=== PATIENT | male | born 1950 | race Caucasian/White ===

== ENCOUNTER 2019-04-20 15:59 | Inpatient (IN) ==
[2019-04-20] MEDS ORDERED: PROMETHAZINE 25 MG/ML VIAL IV PRN (16:20)
[2019-04-20] MEDS ORDERED: HYDROmorphone 2 MG/ML VIAL IV PRN (16:20)
[2019-04-20] MEDS ORDERED: SENNOSIDES 1 TABLET PO PRN (16:20)
[2019-04-20] MEDS ORDERED: ONDANSETRON 4 MG/2 ML VIAL IV PRN (16:20)
[2019-04-20] MEDS ORDERED: NALOXONE HCL 0.4 MG/ML VIAL IV PRN (16:20)
[2019-04-20] MEDS ORDERED: BISACODYL 10 MG SUPP.RECT PR PRN (16:20)
[2019-04-20] MEDS ORDERED: ACETAMINOPHEN 325 MG TABLET PO PRN (16:20)
[2019-04-20] MEDS ORDERED: SODIUM BICARBONATE VIAL 150 MEQ in DEXTROSE 5% IN WATER 850 ML IV SCH ×2 (16:30→16:43)
[2019-04-20] MEDS ORDERED: oxyCODONE HCL 5 MG TABLET PO PRN (16:44)
[2019-04-20] MEDS ORDERED: LACTATED RINGERS 1,000 ML IV ONE (16:51)
--- NOTE | 2019-04-20 16:51 | Internal Med History&Physical ---
Medical - H&P: HPI Patient information: Note initiated : 04/20/19 at 4:45 pm Service Date, if different from initiated Date: [] Patient: Rafael Mo a 69 y/o M admitted on 04/20/19 for Acute Renal Failure, Hypertension . Chief Complaint: [] History of present illness: Mr. Mo is a 69 year old M with history of BPH status post prostatectomy, peripheral vascular disease on dual antiplatelet drugs as well as Eliquis presents to the emergency room at [facility] for nausea and vomiting that has been bothering him for the last 2 weeks. Patient notes that he has been having severe nausea and vomiting every time he tries to eat something. He denies any nausea vomiting or retching when he does not eat. Usually food that he has eaten will come out. He denies any blood in the stools no black stools or melena. He notes his nausea vomiting is worse with food and better with n.p.o. status. He has not eaten or has not had much fluid intake for the last 2 weeks. Initially felt his symptoms would get better however since that did not improve he decided to go to the emergency room. He was admitted with similar symptoms last year but he had renal failure secondary to decreased oral intake associated with nausea and vomiting. The patient also complains about abdominal pain right lower quadrant that started 2 weeks ago he is not sure if the pain started first with the nausea vomiting started first. He denies any diarrhea or any blood in the stools he denies any obvious aggravating or relieving factors with relation to his lower abdominal pain. Sharp pain intermittent nonradiating. The patient also notes intermittent chest pains, epigastric burning, lasts for a few seconds not associated with shortness of breath or palpitations. The patient admits to having some dizziness whenever he changes position. Does not recollect when was the last time he passed urine. On presenting to the emergency room at [facility] according to the ER physician the patient was hypotensive but responded to IV fluids., Labs showed WBC count of 6.3 hemoglobin 11.9 platelets 146, sodium 133, potassium 6.4 bicarbonate 15 anion gap 26 chloride 92 BUN 181 creatinine 12.7 glucose 88 Venous blood gas shows pH of 7.19 PCO2 42. Patient had a PSA done I believe this year that was 0.008 Patient denies any recent use of NSAIDs, he is on lisinopril and Aldactone for management of his hypertension. Given that [facility] does not have nephrology coverage the patient was transferred here for further management. Dr. Sal, the consulting garbage stoker had consulted the patient on the phone with the ED provider and had accepted the patient for transfer. All systems: reviewed and no additional remarkable complaints except as stated (as per HPI rest neg) Medical - H&P: PMH Medical history: Peripheral vascular disease Gout 's history of CA prostate Chronic kidney disease Chronic insomnia Hypertension Osteoarthritis Lumbar fracture Chronic anticoagulate Surgical history: Prostatectomy Family history: reviewed and not pertinent Social history: Lives by himself Ex-smoker Social, regular drinker Denies any drug use Medical - H&P: Meds Allergies Allergy/AdvReac Type Severity Reaction Status Date / Time furosemide [From Lasix] Allergy Verified 04/20/19 16:28 Penicillins Allergy Verified 04/20/19 16:27 Medical - H&P: Exam - Constitutional Exam: GENERAL: The patient is a well-developed, well-nourished in no apparent distress. Is alert and oriented x3. VITAL SIGNS: Reviewed and as noted elsewhere. HEENT: Head is normocephalic and atraumatic. Extraocular muscles are intact. Pupils are equal, round, and reactive to light. Nares appeared normal. Mouth appears any without lesions. Mucous membranes are dry NECK: Normal to inspection, Supple, No lymphadenopathy or thyromegaly. LUNGS: Air entry equal on both sides, no wheezing, crackles or rhonchi noted. No accessory muscles of respiration HEART: Regular rate and rhythm normal, S1 and S2 heard, no Gallop, S3 or Rub Noted, No Gross murmur heard. ABDOMEN: Soft, nontender, and nondistended. Positive bowel sounds. No hepatosplenomegaly was noted. EXTREMITIES: No cyanosis, clubbing, rash, lesions or edema. NEUROLOGIC: Cranial nerves II through XII are grossly intact. Motor and Sensory System Grossly Intact PSYCHIATRIC: Normal affect, anxious Mood. Appropriate Behavior. SKIN: No ulceration or wounds noted, No jaundice, No rash noted. Medical - H&P: Reslt - Impressions EGD 03/2018(Dr Mujica IMPRESSION: 1. Grade II-III gastroesophageal junction erosive esophagitis with associated peptic stricture and hiatal hernia, not dilated given last dose of Eliquis yesterday morning. 2. Erosive gastritis and duodenitis with JENNIFER biopsies obtained (likely secondary to or exacerbated by ibuprofen usage). 3. Colonoscopy remarkable for sigmoid diverticulosis with small to moderate internal hemorrhoids. PLAN: 1. Place the patient on pantoprazole 40 mg b.i.d. during this hospitalization and advise that he take omeprazole 20 mg b.i.d. at discharge for at least the next 8 weeks, and then maintain on 20 mg prior to breakfast for long-term given need for anticoagulation and clopidogrel. 2. Strictly avoid NSAIDs and aspirin. 3. Follow up JENNIFER biopsy results and if positive, treat with combination antibiotics. 4. Offer esophageal dilation off Eliquis at least 48 hrs. Barium Swallow 2017 Indication: Dysphagia, regurgitation. Findings: The patient swallowed thick and thin barium without difficulty after ingesting effervescent crystals. I see no evidence of extrinsic or intrinsic esophageal mass. No esophageal ulceration. There is presbyesophagus. A tiny sliding hiatal hernia is noted. There is a delayed transit of esophageal contents presumably related to presbyesophagus. Contrast versus the GE junction into the stomach and duodenum without delay. Barium tablet traversed the esophagus and GE junction without significant delay as well. Impression: Presbyesophagus. Medical - H&P: A/P - Narrative A/P Narrative: A/P Acute Kidney Injury -Likely from pre renal cause, decreased oral intake -IV fluids, get CT abdomen and pelvis, look for hydronephrosis, and other possible etiology for abdominal pain. -Nephrology consulted, await consult. -check ua, urine prot creat, urine sodium. Hyperkalemia -on IV bicarb drip, should help, will repeat labs -hopefully will respond to medical management. Acidosis, ANion gap and non anion gap -From renal failure -monitor, should respond to fluids Nausea/Vomiting/Abdominal pain -Etiology? h/o Gastritis in past, also noted presbyesophagus -no sick contact, or h/o suggestive of food poisoning. -CT should help -IV PPI for now, seems not on PPI at this time. h/o Gout - no acute joint pains reported PVD -s/p stents by Dr Kearns, on anticoagulation and dual antiplatlet agents HTN -on Aldactone / Lisinopril, hold for now. DVT hep sq Full code Renal Diet.
--- NOTE | 2019-04-20 17:29 | Cat Scan Report ---
CLINICAL INFORMATION: Renal failure. Abdominal pain. COMPARISON: Previous lumbar MRI scan dated 05/31/2018 TECHNIQUE: Axial images were obtained through the abdomen and pelvis. Sagittally and coronally reformatted images. FINDINGS: Negative lung bases. No parenchymal infiltrate or mass. No focal abnormality. There is no pleural fluid. There is no pericardial fluid. Liver is negative. No focal abnormality identified on this noncontrast enhanced examination. Liver contour is smooth. Gallbladder is present. No calcified gallstones. No dilated bile ducts. Spleen is not enlarged. Pancreas is negative. No pancreatic mass. No peripancreatic abnormality. Negative adrenal glands. Kidneys are somewhat lobular. Appearance is consistent with extrarenal pelvis on the right. No true hydronephrosis. Is no detectable renal mass. No renal calculi. No hydroureter or ureteral stone. There is no bladder stone. Mild sigmoid diverticulosis. No diverticulitis. No pericolonic inflammatory change. Appendix is not visualized. No evidence for appendicitis. Small bowel is negative. No mesenteric adenopathy. There is calcification of the abdominal aorta. Common iliac arteries and external iliac arteries are calcified. There is mild coronary artery calcification. Compression deformity of the L1 vertebral body. This is slightly worse than on previous examination dated 05/31/2018. Degenerative disc narrowing at L4-5. No evidence for disc infection. Sacrum and pelvis are negative. There are cancellous screws in the left hip. No intra-abdominal abscess. No pneumoperitoneum. No biliary or portal venous gas. No pneumatosis. IMPRESSION: 1. Mild sigmoid diverticulosis. No diverticulitis. 2. Atherosclerotic disease. No abdominal aortic aneurysm 3. No acute abnormality The exam was performed using radiation dose optimization techniques including, but not limited to, automated exposure control, adjustment of the mA and/or kV according to patient size and use of iterative reconstruction technique. Interpreted and Authenticated by: Rich Beach 04/20/19
[2019-04-20 17:35] LABS: ALT/SGPT < 5 U/l (0-40); AST/SGOT < 5 U/l (0-37); Albumin 3.7 gm/dL (3.2-5.2); Albumin/Globulin Ratio 1.2 (1.0-2.3); Alkaline Phosphatase 58 U/L (39-117); Bilirubin,Direct < 0.2 mg/dL (0.0-0.3); Bilirubin,Total 0.5 mg/dL (0.0-1.0); Blood Urea Nitrogen 172 mg/dl (8-23); Calcium 8.7 mg/dl (8.6-10.4); Carbon Dioxide 16 mmol/L (22-30); Chloride 94 mmol/L (96-108); Globulin 3.1 gm/dL (2.2-3.7); Glomerular Filtration Rate 4; Glucose 98 mg/dL (70-105); Lactate Dehydrogenase 92 U/L (94-250); Phosphorous 11.1 mg/dL (2.7-4.5); Sodium 132 mmol/L (133-145); Triglycerides 128 mg/dl (<150); Uric Acid 10.2 mg/dL (2.5-8.0)
--- NOTE | 2019-04-20 18:15 | Nephrology Consult Note ---
History of Present Illness - Reason for Consult Patient information: Note initiated : 04/20/19 at 5:56 pm Service Date, if different from initiated Date: [] Patient: Rafael Mo 69 y/o M admitted on 04/20/19 for Acute Renal Failure, Hypertension . Chief Complaint: [] Consult date: 04/20/19 acute renal failure, hyperkalemia, metabolic acidosis Requesting physician: Piyush Norris - Chief Complaint Nausea and voniting for 2 weeks - History of Present Illness I was called by ED physician at [facility] concerning a chronically ill 69 yr old male with SCr 11, K 6.4 and and anion gap acidosis. This is in association with nausea and vomiting of unknown cause and with a 20 lb weight loss. The ER physician reported this ocured once before but not to such a degree (ARF with peak serum creratinine in the 2's). A review of his medication list reveals he is on a number of medications that in the setting of renal hypoperfusion would cause ARF including Lisinopril, Spironolactone/HCT and KCl supplement. He had been prescribed Bactrim in the past but non lately. His list includes a PPi inhibitor. Also apixiban, ASA and clopidigrel. He has been wheelchair bound due to weakness for the past 3 years without a Dx that the patient is aware of. He denies seeing a railway switchman in the past. Cannot keep food or fluids down but does not report blood or coffee ground emesis. Upoin arrival to OSH, his BP was ~70/50 with pulse 83/min and O2 sat 100%. No fortune or urine output noted till after 1 liter of IVF when a small voided sample was produced. I rercommended stating D5W with 150 mEq NaHCO3 at 200 cc per hour and transferr to [facility] emergent dialysis was needed. Upon arrival, the patient is sitting in the ICU with HR of 92/min and BP 114/70. Alert and responsive with no obvious uremic symptoms. IVF is the bicarb drip at 200 cc/hr. Voiding small amounts of clear urine PVR by bladder scan is 150-[address] scan: IMPRESSION: 1. Mild sigmoid diverticulosis. No diverticulitis. 2. Atherosclerotic disease. No abdominal aortic aneurysm 3. No acute abnormality Laboratory Tests 04/20/19 16:45 Sodium 132 L Potassium 6.0 H* Chloride 94 L Carbon Dioxide 16 L Anion Gap 22.0 H BUN 172 H* Creatinine 11.1 H* Glucose 98 Uric Acid 10.2 H Phosphorus 11.1 H* Magnesium 2.0 Albumin 3.7 Active Medications Acetaminophen (Tylenol) 650 mg PO Q4-6HP PRN PRN Reason: PAIN/FEVER > 101 Bisacodyl (Dulcolax) 10 mg AL Q2-3DAYS PRN PRN Reason: Constipation Docusate Sodium (Colace) 100 mg PO BID NANCY Heparin Sodium (Porcine) (Heparin) 5,000 unit SQ Q12 [facility] Hydromorphone HCl (Dilaudid) 0.5 mg IV Q2HP PRN PRN Reason: PAIN LEVEL > 6 Sodium Bicarbonate 150 meq/ (Dextrose) 1,000 mls @ 200 mls/hr IV Q20H [facility] Last Admin: 04/20/19 17:35 Dose: 200 mls/hr Documented by: Lactated Ringer's (Lactated Ringers) 1,000 mls @ 0 mls/hr IV BOLUS ONE Stop: 04/20/19 16:52 Last Admin: 04/20/19 16:55 Dose: 999 mls/hr Documented by: Naloxone HCl (Narcan) 0.1 mg IV Q2MIN PRN PRN Reason: Opiate Reversal Ondansetron HCl (Zofran) 4 mg IV Q4-6HP PRN PRN Reason: Nausea And Vomiting Oxycodone HCl (Roxicodone) 5 mg PO Q4HP PRN PRN Reason: PAIN LEVEL 3-6 Pantoprazole Sodium (Protonix) 40 mg IV BIDAC [facility] Promethazine HCl (Phenergan) 12.5 mg IV Q4-6HP PRN PRN Reason: Nausea And Vomiting Senna (Senokot) 2 tab PO HSP PRN PRN Reason: Constipation Sodium Chloride (Saline Flush) 10 ml IV Q8 [facility] Review of Systems All systems PM: reviewed and no additional remarkable complaints except as stated Constitutional: as per HPI, anorexia, weakness, weight loss Nose, mouth and throat: hoarseness Respiratory: cough Gastrointestinal: diarrhea, loose stools, vomiting Genitourinary: as per HPI Integumentary: no pruritus Neurological: confusion, dizziness, focal weakness, weakness Hematologic/Lymphatic: easy bruising Past History Past medical history: Medical history: Peripheral vascular disease Gout 's history of CA prostate Chronic kidney disease Chronic insomnia Hypertension Osteoarthritis Lumbar fracture Chronic anticoagulate Surgical history: Prostatectomy Family history: reviewed and not pertinent Social history: Lives by himself Ex-smoker Social, regular drinker Denies any drug use Medications and Allergies Allergies Allergy/AdvReac Type Severity Reaction Status Date / Time furosemide [From Lasix] Allergy Verified 04/20/19 16:28 Penicillins Allergy Verified 04/20/19 16:27 Exam - Vital Signs Vital signs: 109/70 and pulse 109/min - General Appearance General appearance: appears started age, chronically ill, fatigue EENT: ATNC, PERRL, mucous membranes dry, hearing intact, vision intact Neck: no JVD, no thyromegaly, no carotid bruit, supple Respiratory: no kyphosis, no scoliosis Cardiology: no murmurs, no rub, no gallops, no edema, regular rhythm, normal S2 Gastrointestinal: no tenderness, no masses, abdominal bruit Integumentary: no rash Neurologic: no focal deficit, alert and oriented x3 Musculoskeletal: no deformities, no cyanosis, no clubbing Psychiatric: mood/affect appropriate, cooperative Results - Lab Results 04/20/19 16:45 Most recent lab results Calcium 8.7 mg/dl (8.6-10.4) 04/20/19 16:45 Phosphorus 11.1 mg/dL (2.7-4.5) H* 04/20/19 16:45 Magnesium 2.0 mg/dL (1.6-2.5) 04/20/19 16:45 - Image Kidney/bladder ultrasound: report reviewed (PVR 140-170 cc) Assessment and Plan (1) Acute renal failure superimposed on chronic kidney disease Certainly has lots of reasons for ARF, most of which involve decreased renal perfusion due to dehydration, low BP, renal affects of ACEi on renal perfusion in the setting of low renal perfusion states. - What worries me is the degree of hyperphosphatemia that suggests he may well have substantial CKD - need old records from [facility] or other the orthopedic specialty hospital tions to tell - I was also disappointed that he does not have a large PVR and obstructive uropathy which is a rapidly reversible cause of ARF. - The next 24-72 hours will tell to what degree has has reversible renal disease - Monitor GFR with hydration - U/S to gauge renal size and echogenicity - Ca/PO4 and intact PTH - Volume resusitation with Bicarb to correct acidosis - No need for acute dialysis at this juncture Status: Acute Priority: High Qualifiers: Acute renal failure type: with other specified pathological lesion Chronic kidney disease stage: unspecified stage Qualified Code(s): N17.8 - Other acute kidney failure; N18.9 - Chronic kidney disease, unspecified (2) Increased anion gap metabolic acidosis Presumed secondary to renal failure. No history of ethylene glycol or other common agents seen with an anion gap acidosis. - Treat with NaHCO3 drip due to hyperkalemia - Serial labs and EKGs - Argues for chronicity Status: Acute Priority: High (3) Secondary renal hyperparathyroidism Ca x PO4 product > 60 so need control of Phosphate before treating anything else. -Anticipate marked decrease in PO4 with IV glucose - Check daily and address prn - PTH level Status: Acute Priority: High (4) Nausea and vomiting in adult patient - The unifying diagnosis and worse case senario is ESRD with uremic gastropathy. ER doc reported gastritis in the past but no nausea or vomiting. - If this is uremic, it should resolve with time and correction of uremia. If this is the case, it speaks to ESRD and not ARF/CKD. The more I think about this case, the more I fear this will be ESRD as his numbers look so bad but he has little uremic symptoms suggesting a slow onset (ie: lack of EKG changes suggests he "tolerates" acidosis and hypercalemia without cardiac sx. Status: Acute Priority: High
[2019-04-20 18:41] LABS: Appearance,Urine CLEAR; Bacteria,Urine 0 /hpf (0); Bilirubin,Urine NEG (NEG); Color,Urine YELLOW; Culture Indicated,Urine NO; Glucose,Urine (UA) NEGATIVE (NEG); Ketones,Urine NEG (NEG); Leukocyte Esterase,Urine NEG /uL (NEG); Mucus,Urine FEW /hpf (0); Nitrate,Urine NEG (NEG); Protein,Urine 30 mg/dL (NEG); Specific Gravity,Urine 1.014 (1.000-1.035); Urine Blood 0.03 mg/dL (<0.03); Urine Hyaline Cast 5 /lpf (0-2); Urine RBC 1 /hpf (0-1); Urine Squamous Epithelial Cell 1 /hpf (0-4); Urine WBC 3 /hpf (0-4); Urobilinogen,Urine NEG (NEG)
[2019-04-20] MEDS ORDERED: INSULIN REGULAR, HUMAN 1 UNIT/0.01 ML UNIT IV ONE (18:54)
[2019-04-20] MEDS ORDERED: DEXTROSE 50% 50 ML VIAL IV ONE (18:54)
[2019-04-20] MEDS ORDERED: SODIUM POLYSTYRENE SULFONATE 15 GM/60 ML SUSPENSION PO ONE (18:55)
[2019-04-20 19:03] LABS: Creatinine, Spot Urine 226.8 mg/dl; Pro:Crea Ratio 0.14 mg:mg
[2019-04-20] MEDS: PANTOPRAZOLE 40 MG VIAL IV SCH ×2 (19:19→19:22)
[2019-04-20] MEDS: HEPARIN 5,000 UNIT/ML VIAL SQ SCH (20:17)
[2019-04-20] MEDS: DOCUSATE SODIUM 100 MG CAPSULE PO SCH (20:17)
[2019-04-20] MEDS: ESOMEPRAZOLE 40 MG VIAL IV SCH (20:37)
[2019-04-20] MEDS ORDERED: SODIUM BICARBONATE 50 MEQ/50 ML VIAL ONE (21:03)
[2019-04-20] MEDS: SODIUM BICARBONATE VIAL 150 MEQ in DEXTROSE 5% IN WATER 850 ML IV SCH (21:43)
[2019-04-20] MEDS: 0.9 % SODIUM CHLORIDE 10 ML SYRINGE IV SCH (22:13)
[2019-04-20 23:42] LABS: ABG Methemoglobin 0 % (0.4-1.5); Total Hemoglobin 9.7 gm/dL (13.5-16.5); VBG Base Excess -3.5 (-2.0-2.0); VBG HCO3 22.8 mmol/L (24.0-28.0); VBG Oxygen Saturation 86.6 % (40.0-70.0); VBG PO2 72 mmHg (25-40); VBG Total CO2 24.3 mmol/L (25.0-29.0)
[2019-04-21 00:14] LABS: Albumin 3.4 gm/dL (3.2-5.2); Calcium 8.5 mg/dl (8.6-10.4); Magnesium 1.9 mg/dL (1.6-2.5); Phosphorous 8.1 mg/dL (2.7-4.5)
[2019-04-21] MEDS ORDERED: 0.9 % SODIUM CHLORIDE 250 ML IV ONE ×4 (00:32→10:27)
[2019-04-21] MEDS: SODIUM BICARBONATE 50 MEQ/50 ML VIAL ONE ×2 (03:14→03:16)
[2019-04-21] MEDS: SODIUM BICARBONATE VIAL 150 MEQ in DEXTROSE 5% IN WATER 850 ML IV SCH ×2 (03:17→07:20)
[2019-04-21] MEDS: 0.9 % SODIUM CHLORIDE 10 ML SYRINGE IV SCH ×3 (05:19→20:31)
[2019-04-21 06:21] LABS: Basophils # (Auto) 0 K/mcL (0.0-0.3); Basophils % (Auto) 0.5 % (0.0-2.0); Eosinophils # (Auto) 0 K/mcL (0.0-0.7); Eosinophils % (Auto) 0.8 % (0.0-7.0); Granulocytes % (Auto) 71.3 % (38.0-78.0); Hematocrit 27.2 % (41.0-55.0); Hemoglobin 9.2 g/dL (13.5-16.5); Lymphocytes # (Auto) 0.6 K/mcL (1.5-4.8); Lymphocytes % (Auto) 15.9 % (15.5-49.0); Mean Cell Volume 93.1 fL (80.0-100.0); Mean Corpuscular HGB Conc 33.8 g/dL (31.0-36.0); Mean Platelet Volume 9.7 fL (7.4-10.4); Monocytes # (Auto) 0.4 K/mcL (0.1-0.9); Monocytes % (Auto) 11.5 % (1.0-12.0); Platelet Count 102 K/mcL (140-440); RBC 2.92 M/mcL (4.50-5.90); Red Cell Distribution Width 14.3 % (11.5-14.5); WBC 3.5 K/mcL (4.5-11.0)
[2019-04-21 06:54] LABS: ALT/SGPT 6 U/l (0-40); AST/SGOT < 5 U/l (0-37); Albumin 3.1 gm/dL (3.2-5.2); Albumin/Globulin Ratio 1.2 (1.0-2.3); Alkaline Phosphatase 46 U/L (39-117); Bilirubin,Direct < 0.2 mg/dL (0.0-0.3); Bilirubin,Total 0.5 mg/dL (0.0-1.0); Blood Urea Nitrogen 153 mg/dl (8-23); Calcium 7.8 mg/dl (8.6-10.4); Carbon Dioxide 26 mmol/L (22-30); Chloride 99 mmol/L (96-108); Globulin 2.6 gm/dL (2.2-3.7); Glomerular Filtration Rate 6; Glucose 118 mg/dL (70-105); Lactate Dehydrogenase 104 U/L (94-250); Magnesium 1.7 mg/dL (1.6-2.5); Phosphorous 6.6 mg/dL (2.7-4.5); Potassium 4.3 mmol/L (3.3-5.1); Sodium 141 mmol/L (133-145); Triglycerides 82 mg/dl (<150); Uric Acid 9.7 mg/dL (2.5-8.0)
[2019-04-21] MEDS: ESOMEPRAZOLE 40 MG VIAL IV SCH ×2 (07:19→16:58)
[2019-04-21] MEDS ORDERED: MAGNESIUM SULFATE 2 GM/50 ML BAG IV ONE (07:50)
--- NOTE | 2019-04-21 08:06 | Ultrasound Report ---
CLINICAL INFORMATION: Renal failure TECHNIQUE: Grayscale and color flow Doppler spectral imaging COMPARISON: Noncontrast enhanced CT scan 04/20/2019 FINDINGS: Right kidney measures 12.0 x 4.6 x 3.7 cm. Left kidney measures 11.7 x 4.7 x 4.0 cm. Both kidneys are mildly echogenic and lobular in configuration. No solid or cystic mass. There is no hydronephrosis. No detectable calculi. Patient voided prior to this examination. Despite voiding the bladder volume measures 274 mL. No bladder calculus or detectable mass. Bilateral ureteral jets are identified. IMPRESSION: 1. Mildly echogenic kidneys consistent with medical renal disease 2. No hydronephrosis 3. Postvoid residual as above Interpreted and Authenticated by: Rich Beach 04/21/19
--- NOTE | 2019-04-21 08:30 | Internal Med Progress Note ---
Medical - PN: Subj Patient information: Note initiated : 04/21/19 at 8:27 am Service Date, if different from initiated Date: [] Patient: Rafael Mo a 69 y/o M admitted on 04/20/19 for Acute Renal Failure, Hypertension . Chief Complaint: [] Interval history: Mr. Mo is a 69 year old M with history of BPH status post prostatectomy, peripheral vascular disease on dual antiplatelet drugs as well as Eliquis presents to the emergency room at [facility] for nausea and vomiting that has been bothering him for the last 2 weeks. Patient notes that he has been having severe nausea and vomiting every time he tries to eat something. He denies any nausea vomiting or retching when he does not eat. Usually food that he has eaten will come out. He denies any blood in the stools no black stools or melena. He notes his nausea vomiting is worse with food and better with n.p.o. status. He has not eaten or has not had much fluid intake for the last 2 weeks. Initially felt his symptoms would get better however since that did not improve he decided to go to the emergency room. He was admitted with similar symptoms last year but he had renal failure secondary to decreased oral intake associated with nausea and vomiting. The patient also complains about abdominal pain right lower quadrant that st arted 2 weeks ago he is not sure if the pain started first with the nausea vomiting started first. He denies any diarrhea or any blood in the stools he denies any obvious aggravating or relieving factors with relation to his lower abdominal pain. Sharp pain intermittent nonradiating. The patient also notes intermittent chest pains, epigastric burning, lasts for a few seconds not associated with shortness of breath or palpitations. The patient admits to having some dizziness whenever he changes position. Does not recollect when was the last time he passed urine. On presenting to the emergency room at [facility] according to the ER physician the patient was hypotensive but responded to IV fluids., Labs showed WBC count of 6.3 hemoglobin 11.9 platelets 146, sodium 133, potassium 6.4 bicarbonate 15 anion gap 26 chloride 92 BUN 181 creatinine 12.7 glucose 88 Venous blood gas shows pH of 7.19 PCO2 42. Patient had a PSA done I believe this year that was 0.008 Patient denies any recent use of NSAIDs, he is on lisinopril and Aldactone for management of his hypertension. Given that [facility] does not have nephrology coverage the patient was transferred here for further management. Dr. Sal, the consulting wound/ostomy nurse had consulted the patient on the phone with the ED provider and had accepted the patient for transfer. 04/21 Patient seen examined, no acute issues, bp still soft, but MAP > 65 labs show improving creat, K , appreciate nephrology input. Pt making urine, sitting comfortably this AM in chair. Pertinent ROS: Denies headache, dizziness Denies chest pain, palpitations Denies cough or shortness of breath Denies abdominal pain, nausea or vomiting. - Constitutional Vitals: Vital Signs Temp Pulse Resp BP Pulse Ox 98.3 F 90 20 94/55 96 04/21/19 04:01 04/21/19 06:41 04/21/19 07:00 04/21/19 07:00 04/21/19 06:41 Period Temp Pulse Resp BP Sys/Godoy Pulse Ox Last 24 Hr 98.3 F-99 F 35-165 14-35 76-151/44-128 78-100 Intake and Output 04/20/19 04/21/19 04/21/19 21:59 05:59 13:59 Intake Total 1881999 Output Total 460 2091 200 Balance 1427 -91 -200 Weight 185 lb 6.4 oz Intake & Output: Intake & Output 04/20/19 04/21/19 04/21/19 21:59 05:59 13:59 Intake Total 1881999 Output Total 460 2091 200 Balance 1427 -91 -200 Weight 185 lb 6.4 oz Intake: IV 1827 500 Sodium Chloride 0.9% 250 ml @ 500 Wide Open IV [facility] Rx#: [id number] Lactated Ringers 1,000 ml @ 1000 Wide Open IV [facility] Rx#: [id number] Sodium Bicarbonate Vial 150 Meq 827 In Dextrose 5% in Water 850 ml @ 200 mls/hr IV Q20H [facility] Rx#: [id number] Oral 60 500 IV - Manual Only 1000 Output: Void Amount 460 640 200 # of times incontinent of urine 1 Stool 1450 Other: Meal Dinner Percent of Meal Consumed 25% Feeding Ability Independent Urine Appearance Clear Clear Clear Urine Color Straw Straw Straw Stool Size Small Stool Color Brown Stool Consistency Liquid # Bowel Movements 1 Exam: Constitutional; Afebrile, cooperative, alert, not in distress. Respiratory system: Air Entry equal on both sides, No crackles or wheezing, no rhonchi. CVS- Rate rhythm regular, S1,S2 heard, no gallop, no rub. 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 Medical - PN: Obj Da - Labs CBC & Chem 7: 04/21/19 04:19 04/21/19 04:19 Labs: Abnormal Lab Results 04/21/19 04/21/19 04/21/19 04:19 04:19 04:19 WBC 3.5 L RBC 2.92 L Hgb 9.2 L Hct 27.2 L Plt Count 102 L Lymph # (Auto) 0.6 L ABG Methemoglobin VBG pH VBG pO2 VBG HCO3 VBG Total CO2 VBG O2 Saturation VBG Base Excess Carboxyhemoglobin Total Hemoglobin Sodium Potassium Chloride Carbon Dioxide Anion Gap BUN 153 H* Creatinine 8.0 H* Glucose 118 H Uric Acid 9.7 H Calcium 7.8 L Phosphorus 6.6 H* Lactate Dehydrogenase Total Protein 5.7 L Albumin 3.1 L PTH Intact 189.2 H Urine Protein Urine Occult Blood Hyaline Casts 04/20/19 04/20/19 04/20/19 22:52 22:52 18:00 WBC RBC Hgb Hct Plt Count Lymph # (Auto) ABG Methemoglobin 0 L VBG pH 7.30 L VBG pO2 72 H VBG HCO3 22.8 L VBG Total CO2 24.3 L VBG O2 Saturation 86.6 H VBG Base Excess -3.5 L Carboxyhemoglobin 2.3 H Total Hemoglobin 9.7 L Sodium Potassium Chloride Carbon Dioxide Anion Gap 19.0 H BUN 158 H* Creatinine 9.9 H* Glucose 65 L Uric Acid Calcium 8.5 L Phosphorus 8.1 H* Lactate Dehydrogenase Total Protein Albumin PTH Intact Urine Protein 30 A Urine Occult Blood 0.03 A Hyaline Casts 5 H 04/20/19 16:45 WBC RBC Hgb Hct Plt Count Lymph # (Auto) ABG Methemoglobin VBG pH VBG pO2 VBG HCO3 VBG Total CO2 VBG O2 Saturation VBG Base Excess Carboxyhemoglobin Total Hemoglobin Sodium 132 L Potassium 6.0 H* Chloride 94 L Carbon Dioxide 16 L Anion Gap 22.0 H BUN 172 H* Creatinine 11.1 H* Glucose Uric Acid 10.2 H Calcium Phosphorus 11.1 H* Lactate Dehydrogenase 92 L Total Protein Albumin PTH Intact Urine Protein Urine Occult Blood Hyaline Casts Meds: Medications Acetaminophen (Tylenol) 650 mg PO Q4-6HP PRN PRN Reason: PAIN/FEVER > 101 Bisacodyl (Dulcolax) 10 mg VA Q2-3DAYS PRN PRN Reason: Constipation Docusate Sodium (Colace) 100 mg PO BID [facility] Last Admin: 04/20/19 20:17 Dose: 100 mg Documented by: Esomeprazole Magnesium (Nexium) 40 mg IV BIDAC [facility] Last Admin: 04/21/19 07:19 Dose: 40 mg Documented by: Heparin Sodium (Porcine) (Heparin) 5,000 unit SQ Q12 [facility] Last Admin: 04/20/19 20:17 Dose: 5,000 unit Documented by: Dextrose/Sodium Chloride (Dextrose 5%-1/2ns Iv Solution) 1,000 mls @ 150 mls/hr IV .Q6H40M [facility] Stop: 04/22/19 03:59 Magnesium Sulfate (Magnesium Sulfate) 2 gm in 50 mls @ 25 mls/hr IV ONCE ONE Stop: 04/21/19 09:49 Naloxone HCl (Narcan) 0.1 mg IV Q2MIN PRN PRN Reason: Opiate Reversal Ondansetron HCl (Zofran) 4 mg IV Q4-6HP PRN PRN Reason: Nausea And Vomiting Promethazine HCl (Phenergan) 12.5 mg IV Q4-6HP PRN PRN Reason: Nausea And Vomiting Senna (Senokot) 2 tab PO HSP PRN PRN Reason: Constipation Sodium Chloride (Saline Flush) 10 ml IV Q8 [facility] Last Admin: 04/21/19 05:19 Dose: 10 ml Documented by: - ABG Interpretation ABG results: 04/20/19 22:52 ABG Methemoglobin 0 L VBG pH 7.30 L VBG pCO2 47.0 VBG pO2 72 H VBG HCO3 22.8 L VBG Total CO2 24.3 L VBG O2 Saturation 86.6 H VBG Base Excess -3.5 L Medical - PN: A/P - Time Spent With Patient Total time spent is greater than 50% in coordination of care (as documented) at patient's floor/unit and/or counseling patient: - Narrative A/P Narrative: A/P Acute Kidney Injury -Likely from pre renal cause, decreased oral intake, FENA > 1, but pt on diuretic,s FEUREA < 35 (16) indicative of pre renal etiology -Nephrology following -Creat improving, no HD planned at this time Hyperkalemia -responded to medical management, resolved, monitor Hypocalcemia/hypomagmesemia/Hyperphospatemia -Management per nephrology. Acidosis, ANion gap and non anion gap -From renal failure -monitor, should respond to fluids Nausea/Vomiting/Abdominal pain -Etiology? h/o Gastritis in past, also noted presbyesophagus -no sick contact, or h/o suggestive of food poisoning. -CT abdomen and pelvis is neg for any acute pathology -IV PPI for now, able to tolerate PO diet h/o Gout - no acute joint pains reported, stable PVD -s/p stents by Dr Kearns, on anticoagulation and dual antiplatlet agents, to continue same. HTN -on Aldactone / Lisinopril, hold for now. BP still soft DVT hep sq Full code Renal Diet. Medical - PN: Qual - VTE Deep Vein Thrombosis/Pulmonary Embolism Present on Admission: No
[2019-04-21] MEDS: HEPARIN 5,000 UNIT/ML VIAL SQ SCH ×2 (08:37→20:31)
[2019-04-21] MEDS: DEXTROSE 5%-1/2NS 1,000 ML IV SCH ×3 (08:37→22:02)
[2019-04-21] MEDS: DOCUSATE SODIUM 100 MG CAPSULE PO SCH ×2 (08:37→20:31)
[2019-04-21 08:51] LABS: Thyroid Stimulating Hormone 0.57 uIU/ml (0.27-5.01)
[2019-04-21 09:04] LABS: Vitamin B12 723.3 pg/ml (232-1245)
[2019-04-21 09:04] LABS: Folate 2.4 ng/mL (4.2-19.9)
[2019-04-21] MEDS: FOLIC ACID/VITAMIN B COMP W-C 1 TAB TABLET PO SCH (10:02)
[2019-04-21] MEDS ORDERED: LACTATED RINGERS 1,000 ML IV ONE ×2 (10:29→13:13)
[2019-04-21] MEDS ORDERED: VASOPRESSIN 20 UNIT in DEXTROSE 5% IN WATER 99 ML IV PRN (14:49)
[2019-04-21] MEDS: 0.9 % SODIUM CHLORIDE 250 ML IV SCH ×2 (17:10→22:12)
--- NOTE | 2019-04-21 17:27 | Nephrology Progress Note ---
Subjective Patient information: Note initiated : 04/21/19 at 5:24 pm Service Date, if different from initiated Date: [] Patient: Rafael Mo 69 y/o M admitted on 04/20/19 for Acute Renal Failure, Hypertension . Chief Complaint: [] Principal diagnosis: ARF on CKD 3 Interval history: Improving GFR, urinary retention w/o hydronephrosis or obstructive physiology Slow improvement as ACEi is metabolized HyperK and acidosis have resolved Pertinent ROS: Nothing new to ROS Additional PMFSH (Level 3 Only): Review of prior labs shows peak serum Cr 3.0 before resolving to SCr 0.8 done prior to recent right popliteal angio and stent Objective - Vital Signs Vital signs: Vital Signs Temp Pulse Pulse Resp BP Pulse Ox 04/21/19 17:01 90 17 99/70 99 04/21/19 16:01 97.8 F 87 17 99/56 100 04/21/19 15:31 81 18 97/67 98 04/21/19 15:01 87 16 99/68 97 04/21/19 14:31 88 15 97/62 100 04/21/19 14:01 87 21 93/60 99 04/21/19 13:57 95 04/21/19 13:31 22 79/49 04/21/19 13:17 91 H 19 100 04/21/19 13:15 95 H 18 83/47 100 04/21/19 13:09 99 H 12 77/54 99 04/21/19 13:01 95 H 19 92/61 99 04/21/19 12:31 94 H 19 112/65 100 04/21/19 12:01 82 18 108/67 99 04/21/19 11:41 83 16 106/67 100 04/21/19 11:36 97.4 F 83 17 106/67 100 04/21/19 11:31 89 20 104/69 100 04/21/19 11:01 86 15 97/62 100 04/21/19 10:56 91 H 19 96/75 100 04/21/19 10:46 85 21 99 04/21/19 10:27 88/70 04/21/19 10:04 97 H 16 74/61 100 04/21/19 09:00 17 85/69 04/21/19 08:51 99 H 21 75/55 90 04/21/19 08:00 96 H 28 H 85/62 99 04/21/19 07:00 20 94/55 04/21/19 06:41 90 96 04/21/19 06:38 22 93/66 04/21/19 06:00 165 H 23 H 76/65 80 L 04/21/19 05:53 88 21 98 04/21/19 05:01 35 L 18 91/58 78 L 04/21/19 04:12 89 19 98 04/21/19 04:01 98.3 F 20 98/63 96 04/21/19 03:02 86 20 98 04/21/19 03:01 86 18 94/51 99 04/21/19 02:09 20 04/21/19 02:05 85 14 96/44 100 04/21/19 02:01 83 18 81/44 96 04/21/19 01:26 89 21 80/45 98 04/21/19 01:01 16 81/63 04/21/19 00:52 90 100 04/21/19 00:13 92 H 21 79/48 99 04/21/19 00:12 89 18 96 04/21/19 00:08 20 80/60 04/21/19 00:06 98.7 F 88 16 87/50 99 04/21/19 00:03 22 04/20/19 23:13 35 H 04/20/19 23:02 19 95/51 04/20/19 23:01 85 18 88/45 99 04/20/19 22:12 89 17 99 04/20/19 22:01 88 17 97/51 100 04/20/19 21:14 85 19 98 04/20/19 21:01 84 21 94/57 98 04/20/19 20:02 93 H 19 99 04/20/19 20:01 99 F 94 H 19 96/59 98 04/20/19 19:32 89 100 04/20/19 19:16 26 H 97/60 04/20/19 19:03 27 H 99/48 04/20/19 18:46 18 104/61 04/20/19 18:45 21 04/20/19 18:31 18 114/64 04/20/19 18:16 18 121/67 04/20/19 18:01 17 116/66 04/20/19 17:47 95 H 24 H 140/126 100 04/20/19 17:33 20 151/128 Intake and Output 04/21/19 04/21/19 04/21/19 05:59 13:59 21:59 Intake Total 1999 1659 1989 Output Total 2090 1100 700 Balance -91 560 1290 Intake: IV 500 1300 1989 Sodium Chloride 0.9% 250 ml @ 500 250 Wide Open IV [facility] Rx#: [id number] Dextrose 5%-1/2Ns IV Solution 1 990 ,000 ml @ 150 mls/hr IV .Q6H40M [facility] Rx#:[id number] Oral 500 360 IV - Manual Only 1000 Output: Void Amount 640 650 700 # of times incontinent of urine 1 Urine/Stool Mix 450 Stool 1450 Other: Meal Lunch Percent of Meal Consumed 75% Feeding Ability Assist with Tray Set Up Urine Appearance Clear Clear Clear Urine Color Straw Straw Pale Stool Size Small Stool Color Brown Stool Consistency Liquid # Bowel Movements 1 Weight 185 lb 6.4 oz Patient Weight 04/22/19 05:59 Weight 185 lb 6.4 oz Intake & Output: Intake & Output 04/21/19 04/21/19 04/21/19 05:59 13:59 21:59 Intake Total 1999 1659 1989 Output Total 2090 1100 700 Balance -91 560 1290 Weight 185 lb 6.4 oz Intake: IV 500 1300 1989 Sodium Chloride 0.9% 250 ml @ 500 250 Wide Open IV [facility] Rx#: [id number] Dextrose 5%-1/2Ns IV Solution 1 990 ,000 ml @ 150 mls/hr IV .Q6H40M [facility] Rx#:[id number] Oral 500 360 IV - Manual Only 1000 Output: Void Amount 640 650 700 # of times incontinent of urine 1 Urine/Stool Mix 450 Stool 1450 Other: Meal Lunch Percent of Meal Consumed 75% Feeding Ability Assist with Tray Set Up Urine Appearance Clear Clear Clear Urine Color Straw Straw Pale Stool Size Small Stool Color Brown Stool Consistency Liquid # Bowel Movements 1 - General Appearance General appearance: well-developed, appears started age EENT: ATNC, PERRL, mucous membranes dry Neck: no JVD, no thyromegaly, no carotid bruit Respiratory: no scoliosis, clear Cardiology: no murmurs, no rub, no gallops, no edema, regular rate, regular rhythm, normal S1, normal S2 Gastrointestinal: normoactive bowel sounds, no tenderness, no guarding, no organomegaly Integumentary: no rash, warm and dry Neurologic: no focal deficit, no asterixis, alert and oriented x3, CN 3-12 intact Musculoskeletal: no deformities, no erythema, no cyanosis, no clubbing Psychiatric: mood/affect appropriate, cooperative - Lab 04/21/19 04:19 04/21/19 04:19 Most recent lab results Calcium 7.8 mg/dl (8.6-10.4) L 04/21/19 04:19 Phosphorus 6.6 mg/dL (2.7-4.5) H* 04/21/19 04:19 Magnesium 1.7 mg/dL (1.6-2.5) 04/21/19 04:19 - Imaging Kidney/bladder ultrasound: report reviewed (FeNa 1.1%) Assessment and Plan (1) Acute renal failure superimposed on chronic kidney disease Status: Acute Priority: High Comment: Prerenal azotemia seem likely. Assume baseline CKD 2/3 Qualifiers: Acute renal failure type: with other specified pathological lesion Chronic kidney disease stage: stage 2 (mild) Qualified Code(s): N17.8 - Other acute kidney failure; N18.2 - Chronic kidney disease, stage 2 (mild) (2) Increased anion gap metabolic acidosis Resolved with 24 hours of IV bicarb As GFR improves, acid production will decrease Monitor for now Status: Acute Priority: High (3) Secondary renal hyperparathyroidism Uson stabalization of GFR, plan will be formulated. PO4 improved with glucose Status: Acute Priority: High Comment: Perhaps mild uremia W/U as GFR improved (4) Nausea and vomiting in adult patient Improving with correction of metabolic abnormalities W/U as GFR improves Status: Acute Priority: High (5) Drug-induced hyperkalemia Due to KCl, ACEi, +/- aldactone and acidosis and ARF Improved nicely with IV bicarb EKG probably did have QRS widening and has now returned to a narrow complex tracing. Status: Acute - Narrative A/P Narrative: Overall there is marked improvement * Continue volume repletion with Dw1/2NS * Avoid B-blockers and ACEi and aldactone for now due to ARF and hyperkalemia * alpha 1 blockers for bladder outlet onstruction and HTN to avoid hyperkalemia and acidosis with ACEi/ARB, aldosterone antagonists and to some lesser degree B-blockers * CPK aregues against muscle injury as a cause of his leg weakness. * Probably will need a statin if he tolerats them
[2019-04-21 18:57] LABS: Retic Absolute 0.6 % (0.5-1.5)
[2019-04-21 20:16] LABS: Albumin 3.1 gm/dL (3.2-5.2); Blood Urea Nitrogen 117 mg/dl (8-23); Calcium 7.5 mg/dl (8.6-10.4); Carbon Dioxide 28 mmol/L (22-30); Chloride 96 mmol/L (96-108); Glomerular Filtration Rate 10; Glucose 109 mg/dL (70-105); Phosphorous 4.5 mg/dL (2.7-4.5); Potassium 4.3 mmol/L (3.3-5.1); Sodium 138 mmol/L (133-145)
[2019-04-21] MEDS ORDERED: ZOLPIDEM 5 MG TABLET PO PRN (21:00)
[2019-04-22] MEDS: 0.9 % SODIUM CHLORIDE 10 ML SYRINGE IV SCH ×3 (05:07→21:12)
[2019-04-22] MEDS: 0.9 % SODIUM CHLORIDE 250 ML IV SCH ×3 (05:08→22:08)
[2019-04-22 05:37] LABS: Basophils # (Auto) 0 K/mcL (0.0-0.3); Basophils % (Auto) 0.3 % (0.0-2.0); Eosinophils # (Auto) 0.1 K/mcL (0.0-0.7); Eosinophils % (Auto) 2.4 % (0.0-7.0); Granulocytes % (Auto) 63.1 % (38.0-78.0); Hematocrit 24.6 % (41.0-55.0); Hemoglobin 8.1 g/dL (13.5-16.5); Lymphocytes # (Auto) 0.7 K/mcL (1.5-4.8); Lymphocytes % (Auto) 18.9 % (15.5-49.0); Mean Cell Volume 94.4 fL (80.0-100.0); Mean Corpuscular HGB Conc 32.9 g/dL (31.0-36.0); Mean Platelet Volume 10.2 fL (7.4-10.4); Monocytes # (Auto) 0.6 K/mcL (0.1-0.9); Monocytes % (Auto) 15.3 % (1.0-12.0); Platelet Count 94 K/mcL (140-440); RBC 2.61 M/mcL (4.50-5.90); Red Cell Distribution Width 14.3 % (11.5-14.5); WBC 3.7 K/mcL (4.5-11.0)
[2019-04-22 06:18] LABS: ALT/SGPT 6 U/l (0-40); AST/SGOT 7 U/l (0-37); Albumin 2.7 gm/dL (3.2-5.2); Albumin/Globulin Ratio 1.1 (1.0-2.3); Alkaline Phosphatase 40 U/L (39-117); Bilirubin,Direct < 0.2 mg/dL (0.0-0.3); Bilirubin,Total 0.3 mg/dL (0.0-1.0); Blood Urea Nitrogen 99 mg/dl (8-23); Calcium 7.3 mg/dl (8.6-10.4); Carbon Dioxide 26 mmol/L (22-30); Chloride 99 mmol/L (96-108); Globulin 2.5 gm/dL (2.2-3.7); Glomerular Filtration Rate 15; Glucose 149 mg/dL (70-105); Iron 66 mcg/dl (61-157); Lactate Dehydrogenase 130 U/L (94-250); Magnesium 1.5 mg/dL (1.6-2.5); Phosphorous 3.9 mg/dL (2.7-4.5); Potassium 4.3 mmol/L (3.3-5.1); Sodium 139 mmol/L (133-145); TIBC Calculation 170 ug/dl (228-428); Transferrin % Saturation 38 % (20-50); Triglycerides 64 mg/dl (<150); Unsaturated Iron Binding 104 mcg/dL (112-346); Uric Acid 8.5 mg/dL (2.5-8.0)
[2019-04-22] MEDS ORDERED: MAGNESIUM SULFATE 2 GM/50 ML BAG IV ONE (07:34)
[2019-04-22] MEDS ORDERED: traZODone HCL 50 MG TABLET PO PRN ×2 (08:06→10:02)
[2019-04-22] MEDS: ESOMEPRAZOLE 40 MG VIAL IV SCH (08:14)
--- NOTE | 2019-04-22 08:30 | Internal Med Progress Note ---
Medical - PN: Subj Patient information: Note initiated : 04/22/19 at 8:27 am Service Date, if different from initiated Date: [] Patient: Rafael Mo a 69 y/o M admitted on 04/20/19 for Acute Renal Failure, Hypertension . Chief Complaint: [] Interval history: Mr. Mo is a 69 year old M with history of BPH status post prostatectomy, peripheral vascular disease on dual antiplatelet drugs as well as Eliquis presents to the emergency room at [facility] for nausea and vomiting that has been bothering him for the last 2 weeks. Patient notes that he has been having severe nausea and vomiting every time he tries to eat something. He denies any nausea vomiting or retching when he does not eat. Usually food that he has eaten will come out. He denies any blood in the stools no black stools or melena. He notes his nausea vomiting is worse with food and better with n.p.o. status. He has not eaten or has not had much fluid intake for the last 2 weeks. Initially felt his symptoms would get better however since that did not improve he decided to go to the emergency room. He was admitted with similar symptoms last year but he had renal failure secondary to decreased oral intake associated with nausea and vomiting. The patient also complains about abdominal pain right lower quadrant that st arted 2 weeks ago he is not sure if the pain started first with the nausea vomiting started first. He denies any diarrhea or any blood in the stools he denies any obvious aggravating or relieving factors with relation to his lower abdominal pain. Sharp pain intermittent nonradiating. The patient also notes intermittent chest pains, epigastric burning, lasts for a few seconds not associated with shortness of breath or palpitations. The patient admits to having some dizziness whenever he changes position. Does not recollect when was the last time he passed urine. On presenting to the emergency room at [facility] according to the ER physician the patient was hypotensive but responded to IV fluids., Labs showed WBC count of 6.3 hemoglobin 11.9 platelets 146, sodium 133, potassium 6.4 bicarbonate 15 anion gap 26 chloride 92 BUN 181 creatinine 12.7 glucose 88 Venous blood gas shows pH of 7.19 PCO2 42. Patient had a PSA done I believe this year that was 0.008 Patient denies any recent use of NSAIDs, he is on lisinopril and Aldactone for management of his hypertension. Given that does not have nephrology coverage the patient was transferred here for further management. Dr. Sal, the consulting hospice chaplain had consulted the patient on the phone with the ED provider and had accepted the patient for transfer. 04/21 Patient seen examined, no acute issues, bp still soft, but MAP > 65 labs show improving creat, K , appreciate nephrology input. Pt making urine, sitting comfortably this AM in chair. 04/22 Patient seen examined, no acute complaints at this time. Overnight events reviewed. Patient was a bit hypo-tensive last night after administration of Ambien. This morning blood pressure is normal. Briefly required vasopressin for 2 hours. Has been off vasopressin for a few hours now. He denies any headache chest pain shortness of breath abdominal pain nausea vomiting or diarrhea. Labs show continued improvement in his renal function, electrolytes Pertinent ROS: Denies headache, dizziness Denies chest pain, palpitations Denies cough or shortness of breath Denies abdominal pain, nausea or vomiting. - Constitutional Vitals: Vital Signs Temp Pulse Resp BP Pulse Ox 98.0 F 87 21 132/69 97 04/22/19 04:01 04/22/19 06:01 04/22/19 07:02 04/22/19 07:02 04/22/19 07:02 Period Temp Pulse Resp BP Sys/Godoy Pulse Ox Last 24 Hr 97.0 F-98.0 F 72-99 0-23 74-132/47-87 72-100 Intake and Output 04/21/19 04/22/19 04/22/19 21:59 05:59 13:59 Intake Total 3230 1165 Output Total 1800 1175 575 Balance 1430 -10 -575 Weight 190 lb 9 oz Intake & Output: Intake & Output 04/21/19 04/22/19 04/22/19 21:59 05:59 13:59 Intake Total 3230 1165 Output Total 1800 1175 575 Balance 1430 -10 -575 Weight 190 lb 9 oz Intake: IV 2990 1045 Dextrose 5%-1/2Ns IV Solution 1 1990 ,000 ml @ 150 mls/hr IV .[id number] [facility] Rx#:[id number] Vasostrict 20 Unit In Dextrose 45 5% in Water 99 ml @ 0.02 UNIT/ MIN 6 mls/hr IV Q17H PRN Rx#: [id number] Oral 240 120 Output: Void Amount 1800 1175 575 Other: Meal Dinner Percent of Meal Consumed 75% Feeding Ability Assist with Tray Set Up Urine Appearance Clear Clear Clear Urine Color Pale Pale Bright Yellow Urine Odor Normal Normal Exam: Constitutional; Afebrile, cooperative, alert, not in distress. Respiratory system: Air Entry equal on both sides, No crackles or wheezing, no rhonchi. CVS- Rate rhythm regular, S1,S2 heard, no gallop, no rub. Abdomen- Soft nontender abdomen, no organomegaly, no tenderness, no guarding or rigidity, [employer]- AOOx3, moving all extremities, no gross focal deficit noted. Medical - PN: Obj Da - Labs CBC & Chem 7: 04/22/19 03:16 04/22/19 03:16 Labs: Abnormal Lab Results 04/22/19 04/22/19 04/21/19 03:16 03:16 15:57 WBC 3.7 L RBC 2.61 L Hgb 8.1 L Hct 24.6 L Plt Count 94 L Nelson % (Auto) 15.3 H Lymph # (Auto) 0.7 L ABG Methemoglobin VBG pH VBG pO2 VBG HCO3 VBG Total CO2 VBG O2 Saturation VBG Base Excess Carboxyhemoglobin Total Hemoglobin Sodium Potassium Chloride Carbon Dioxide Anion Gap BUN 99 H 117 H* Creatinine 3.8 H 5.3 H* Glucose 149 H 109 H Uric Acid 8.5 H Calcium 7.3 L 7.5 L Phosphorus Magnesium 1.5 L TIBC 170 L Unsat Iron Binding 104 L Lactate Dehydrogenase Total Protein 5.2 L Albumin 2.7 L 3.1 L Folate PTH Intact Urine Protein Urine Occult Blood Hyaline Casts 04/21/19 04/21/19 04/21/19 07:37 04:19 04:19 WBC RBC Hgb Hct Plt Count Nelson % (Auto) Lymph # (Auto) ABG Methemoglobin VBG pH VBG pO2 VBG HCO3 VBG Total CO2 VBG O2 Saturation VBG Base Excess Carboxyhemoglobin Total Hemoglobin Sodium Potassium Chloride Carbon Dioxide Anion Gap BUN 153 H* Creatinine 8.0 H* Glucose 118 H Uric Acid 9.7 H Calcium 7.8 L Phosphorus 6.6 H* Magnesium TIBC Unsat Iron Binding Lactate Dehydrogenase Total Protein 5.7 L Albumin 3.1 L Folate 2.4 L PTH Intact 189.2 H Urine Protein Urine Occult Blood Hyaline Casts 04/21/19 04/20/19 04/20/19 04:19 22:52 22:52 WBC 3.5 L RBC 2.92 L Hgb 9.2 L Hct 27.2 L Plt Count 102 L Nelson % (Auto) Lymph # (Auto) 0.6 L ABG Methemoglobin 0 L VBG pH 7.30 L VBG pO2 72 H VBG HCO3 22.8 L VBG Total CO2 24.3 L VBG O2 Saturation 86.6 H VBG Base Excess -3.5 L Carboxyhemoglobin 2.3 H Total Hemoglobin 9.7 L Sodium Potassium Chloride Carbon Dioxide Anion Gap 19.0 H BUN 158 H* Creatinine 9.9 H* Glucose 65 L Uric Acid Calcium 8.5 L Phosphorus 8.1 H* Magnesium TIBC Unsat Iron Binding Lactate Dehydrogenase Total Protein Albumin Folate PTH Intact Urine Protein Urine Occult Blood Hyaline Casts 04/20/19 04/20/19 18:00 16:45 WBC RBC Hgb Hct Plt Count Nelson % (Auto) Lymph # (Auto) ABG Methemoglobin VBG pH VBG pO2 VBG HCO3 VBG Total CO2 VBG O2 Saturation VBG Base Excess Carboxyhemoglobin Total Hemoglobin Sodium 132 L Potassium 6.0 H* Chloride 94 L Carbon Dioxide 16 L Anion Gap 22.0 H BUN 172 H* Creatinine 11.1 H* Glucose Uric Acid 10.2 H Calcium Phosphorus 11.1 H* Magnesium TIBC Unsat Iron Binding Lactate Dehydrogenase 92 L Total Protein Albumin Folate PTH Intact Urine Protein 30 A Urine Occult Blood 0.03 A Hyaline Casts 5 H Meds: Medications Acetaminophen (Tylenol) 650 mg PO Q4-6HP PRN PRN Reason: PAIN/FEVER > 101 Apixaban (Eliquis) 5 mg PO BID [facility] Aspirin (Aspirin) 81 mg PO DAILY [facility] Bisacodyl (Dulcolax) 10 mg PA Q2-3DAYS PRN PRN Reason: Constipation Clopidogrel Bisulfate (Plavix) 75 mg PO DAILY [facility] Docusate Sodium (Colace) 100 mg PO BID [facility] Last Admin: 04/21/19 20:31 Dose: Not Given Documented by: Esomeprazole Magnesium (Nexium) 40 mg IV BIDAC [facility] Last Admin: 04/22/19 08:14 Dose: 40 mg Documented by: Folic Acid (Folic Acid) 2 mg PO DAILY [facility] Sodium Chloride (Sodium Chloride 0.9%) 250 mls @ 20 mls/hr IV .[id number] [facility] Last Admin: 04/22/19 05:08 Dose: Not Given Documented by: Vasopressin 20 unit/ Dextrose 100 mls @ 6 mls/hr IV Q17H PRN; Protocol PRN Reason: Hypotension Last Titration: 04/22/19 04:02 Dose: 0 unit/min, 0 mls/hr Documented by: Magnesium Sulfate (Magnesium Sulfate) 2 gm in 50 mls @ 50 mls/hr IV ONCE ONE Stop: 04/22/19 08:33 Last Admin: 04/22/19 08:14 Dose: 50 mls/hr Documented by: Multivit/Ca Carb/B Cmplx/FA/Prenat (Diatx) 1 tab PO DAILY [facility] Last Admin: 04/21/19 10:02 Dose: 1 tab Documented by: Naloxone HCl (Narcan) 0.1 mg IV Q2MIN PRN PRN Reason: Opiate Reversal Ondansetron HCl (Zofran) 4 mg IV Q4-6HP PRN PRN Reason: Nausea And Vomiting Last Admin: 04/21/19 22:55 Dose: 4 mg Documented by: Pneumococcal Polyvalent Vaccine (Pneumovax 23) 0.5 ml IM .ONCE ONE Stop: 04/22/19 10:01 Promethazine HCl (Phenergan) 12.5 mg IV Q4-6HP PRN PRN Reason: Nausea And Vomiting Senna (Senokot) 2 tab PO HSP PRN PRN Reason: Constipation Sodium Chloride (Saline Flush) 10 ml IV Q8 [facility] Last Admin: 04/22/19 05:07 Dose: 10 ml Documented by: Trazodone HCl (Desyrel) 50 mg PO HSP PRN PRN Reason: Insomnia - ABG Interpretation ABG results: 04/20/19 22:52 ABG Methemoglobin 0 L VBG pH 7.30 L VBG pCO2 47.0 VBG pO2 72 H VBG HCO3 22.8 L VBG Total CO2 24.3 L VBG O2 Saturation 86.6 H VBG Base Excess -3.5 L Medical - PN: A/P - Time Spent With Patient Total time spent is greater than 50% in coordination of care (as documented) at patient's floor/unit and/or counseling patient: - Narrative A/P Narrative: A/P Acute Kidney Injury -Likely from pre renal cause, decreased oral intake, FENA > 1, but pt on diuretic,s FEUREA < 35 (16) indicative of pre renal etiology -Nephrology following -Creat improving, 3.8, BUN 99, pt making good urine Hyperkalemia -resolved Hypocalcemia/hypomagmesemia/Hyperphospatemia -Management per nephrology. Replace lytes Acidosis, ANion gap and non anion gap -From renal failure -resolved. Nausea/Vomiting/Abdominal pain -Etiology? h/o Gastritis in past, also noted presbyesophagus -no sick contact, or h/o suggestive of food poisoning. -CT abdomen and pelvis is neg for any acute pathology -tolerating po diet well -transition to oral PPI h/o Gout - no acute joint pains reported, stable PVD -s/p stents by Dr Kearns, on anticoagulation and dual antiplatlet agents, to continue same. HTN -on Aldactone / Lisinopril, hold for now. BP still soft. Insomnia -reaction to ambien, hold off for now, trazodone prn for sleep. DVT hep sq Full code Renal Diet. Medical - PN: Qual - VTE Deep Vein Thrombosis/Pulmonary Embolism Present on Admission: No
[2019-04-22] MEDS ORDERED: FOLIC ACID 1 MG TABLET PO SCH (09:00)
[2019-04-22] MEDS ORDERED: APIXABAN 5 MG TABLET PO SCH (09:00)
[2019-04-22] MEDS ORDERED: CLOPIDOGREL 75 MG TABLET PO SCH (09:00)
[2019-04-22] MEDS ORDERED: ASPIRIN 81 MG TAB.CHEW PO SCH (09:00)
[2019-04-22] MEDS: FOLIC ACID/VITAMIN B COMP W-C 1 TAB TABLET PO SCH (09:05)
[2019-04-22] MEDS: DOCUSATE SODIUM 100 MG CAPSULE PO SCH ×2 (09:06→21:11)
[2019-04-22] MEDS ORDERED: DARBEPOETIN ALFA 100 MCG/ML VIAL SQ ONE (09:30)
[2019-04-22] MEDS ORDERED: PNEUMOCOCCAL 23-VAL P-SAC VAC 0.5 ML SYRINGE IM ONE (10:00)
[2019-04-22] MEDS ORDERED: ACETAMINOPHEN 325 MG TABLET PO PRN (10:02)
[2019-04-22] MEDS ORDERED: VASOPRESSIN 20 UNIT in DEXTROSE 5% IN WATER 99 ML IV PRN (10:02)
[2019-04-22] MEDS ORDERED: BISACODYL 10 MG SUPP.RECT PR PRN (10:02)
[2019-04-22] MEDS ORDERED: ONDANSETRON 4 MG/2 ML VIAL IV PRN (10:02)
[2019-04-22] MEDS ORDERED: NALOXONE HCL 0.4 MG/ML VIAL IV PRN (10:02)
[2019-04-22] MEDS ORDERED: PROMETHAZINE 25 MG/ML VIAL IV PRN (10:02)
[2019-04-22] MEDS ORDERED: SENNOSIDES 1 TABLET PO PRN (10:02)
--- NOTE | 2019-04-22 17:13 | Nephrology Progress Note ---
Subjective Patient information: Note initiated : 04/22/19 at 5:09 pm Service Date, if different from initiated Date: [] Patient: Rafael Mo 69 y/o M admitted on 04/20/19 for Acute Renal Failure, Hypertension . Chief Complaint: [] N/V/diarrhea Principal diagnosis: ARF on CKD 3 Interval history: GFR has improved 5-fold with Rx and IVF management Pertinent ROS: Nothing to add to initial ROS except better appetite Additional PMFSH (Level 3 Only): No history of ASCAD or CHF Vasculopathy placed on NOAC and DAPT 2 yrs ago. As this was a peripheral stent, I'm stopping the NOAC as we have unmasked a substantial anemia by volume r esusitation Objective - Vital Signs Vital signs: Vital Signs Temp Pulse Resp BP Pulse Ox 04/22/19 16:17 98.3 F 16 108/73 100 04/22/19 12:33 98.2 F 16 104/67 96 04/22/19 08:04 98.2 F 17 101/66 97 04/22/19 08:00 97 04/22/19 07:02 21 132/69 97 04/22/19 06:01 87 17 96/66 95 04/22/19 05:01 82 15 96/60 98 04/22/19 04:01 98.0 F 73 16 115/76 96 04/22/19 03:12 80 15 99 04/22/19 03:05 80 21 100/70 96 04/22/19 02:00 73 18 92/67 96 04/22/19 01:43 72 0 L 95 04/22/19 01:34 96 04/22/19 01:32 81 20 109/81 98 04/22/19 01:00 76 21 108/75 100 04/22/19 00:30 79 16 101/69 97 04/22/19 00:01 97.5 F 83 21 111/66 98 04/21/19 23:35 80 23 H 102/69 98 04/21/19 23:18 80 15 106/67 98 04/21/19 23:01 91 H 19 101/87 95 04/21/19 22:46 84 16 100/72 100 04/21/19 22:39 98 H 19 72 L 04/21/19 22:31 88 18 87/67 95 04/21/19 22:16 96 H 17 97/52 97 04/21/19 22:03 96 H 18 81/48 95 04/21/19 22:01 96 H 18 77/48 94 04/21/19 21:01 93 H 20 99/58 98 04/21/19 20:03 97.0 F 95 H 20 95/50 99 04/21/19 19:24 99 04/21/19 19:03 14 95/62 100 04/21/19 18:19 19 101/69 Intake and Output 04/22/19 04/22/19 04/22/19 05:59 13:59 21:59 Intake Total 1165 780 120 Output Total 1175 1575 350 Balance -10 795 -230 Intake: IV 1045 300 Sodium Chloride 0.9% 250 ml @ 250 20 mls/hr IV .[id number] [facility] Rx#: [id number] Vasostrict 20 Unit In Dextrose 45 5% in Water 99 ml @ 0.02 UNIT/ MIN 6 mls/hr IV Q17H PRN Rx#: [id number] Oral 120 480 120 Output: Void Amount 1175 1575 350 Other: Meal Lunch Percent of Meal Consumed 50% Feeding Ability Independent Urine Appearance Clear Clear Clear Urine Color Pale Bright Yellow Bright Yellow Urine Odor Normal Normal Intake & Output: Intake & Output 04/22/19 04/22/19 04/22/19 05:59 13:59 21:59 Intake Total 1165 780 120 Output Total 1175 1575 350 Balance -10 795 -230 Intake: IV 1045 300 Sodium Chloride 0.9% 250 ml @ 250 20 mls/hr IV .[id number] [facility] Rx#: [id number] Vasostrict 20 Unit In Dextrose 45 5% in Water 99 ml @ 0.02 UNIT/ MIN 6 mls/hr IV Q17H PRN Rx#: [id number] Oral 120 480 120 Output: Void Amount 1175 1575 350 Other: Meal Lunch Percent of Meal Consumed 50% Feeding Ability Independent Urine Appearance Clear Clear Clear Urine Color Pale Bright Yellow Bright Yellow Urine Odor Normal Normal - General Appearance General appearance: well-developed, well-nourished, appears started age EENT: ATNC, PERRL, mucous membranes moist Neck: no JVD, no thyromegaly, no carotid bruit, supple Respiratory: no scoliosis, clear Cardiology: no murmurs, no rub, no gallops, no edema, regular rate, regular rhythm, normal S1, normal S2 Neurologic: no focal deficit, no asterixis, alert and oriented x3, CN 3-12 intact Musculoskeletal: no deformities, no erythema, no cyanosis, no clubbing Psychiatric: mood/affect appropriate, cooperative - Lab 04/22/19 03:16 04/22/19 03:16 Most recent lab results Calcium 7.3 mg/dl (8.6-10.4) L 04/22/19 03:16 Phosphorus 3.9 mg/dL (2.7-4.5) 04/22/19 03:16 Magnesium 1.5 mg/dL (1.6-2.5) L 04/22/19 03:16 - Imaging Kidney/bladder ultrasound: report reviewed - Allied health notes Allied health notes reviewed: PT Assessment and Plan (1) Acute renal failure superimposed on chronic kidney disease Steady improvement Home preferably after seeing echo to see if it sheds light on why he is so hypertensive Valvulaar heart, pericardial effusion, CHF or restrictive heart/pericardial disease Avoid ACEi/ARB and diuretics unless needed based on CV reasons Renal f/u with me in <2weeks Status: Acute Priority: High Comment: Prerenal azotemia seem likely. Assume baseline CKD 2/3 Qualifiers: Acute renal failure type: with other specified pathological lesion Chronic kidney disease stage: stage 2 (mild) Qualified Code(s): N17.8 - Other acute kidney failure; N18.2 - Chronic kidney disease, stage 2 (mild) (2) Increased anion gap metabolic acidosis Resolved with 24 hours of IV bicarb As GFR improves, acid production will decrease Monitor for now Renal clinic follow up No NaHCO3 orally Status: Acute Priority: High (3) Secondary renal hyperparathyroidism Uson stabalization of GFR, plan will be formulated. PO4 improved with glucose Status: Acute Priority: High Comment: Perhaps mild uremia W/U as GFR improved (4) Nausea and vomiting in adult patient Improving with correction of metabolic abnormalities W/U as GFR improves Would prefer H2 blockers as opposed to PPi Status: Acute Priority: High (5) Drug-induced hyperkalemia Due to KCl, ACEi, +/- aldactone and acidosis and ARF Improved nicely with IV bicarb EKG probably did have QRS widening and has now returned to a narrow complex tracing. Careful med reconciliation to avoid aforementioned Rx's at discharge Waiting to see LVEF, valve function and presence or absence of restrictive filling patters on echo Status: Acute (6) Anemia due to stage 4 chronic kidney disease treated with darbepoetin Adequate Fe store Functionally ESRD on admission and CKD 4 today Retic count <1% Aranesp 100 ug sq x one today Should have less blood loss to lab now. Do not expect lifelong CEDRIC therapy if his GFR continues to improve F/U in renal clinic 1-2 weeks post discharge Status: Acute
[2019-04-22] MEDS: PANTOPRAZOLE 40 MG TABLET PO SCH (17:15)
[2019-04-23 05:37] LABS: Basophils # (Auto) 0 K/mcL (0.0-0.3); Basophils % (Auto) 0.6 % (0.0-2.0); Eosinophils # (Auto) 0.1 K/mcL (0.0-0.7); Eosinophils % (Auto) 2.5 % (0.0-7.0); Granulocytes % (Auto) 69.4 % (38.0-78.0); Hematocrit 27.4 % (41.0-55.0); Hemoglobin 9.2 g/dL (13.5-16.5); Lymphocytes # (Auto) 0.6 K/mcL (1.5-4.8); Lymphocytes % (Auto) 13.7 % (15.5-49.0); Mean Cell Volume 93.9 fL (80.0-100.0); Mean Corpuscular HGB Conc 33.7 g/dL (31.0-36.0); Mean Platelet Volume 9.8 fL (7.4-10.4); Monocytes # (Auto) 0.6 K/mcL (0.1-0.9); Monocytes % (Auto) 13.8 % (1.0-12.0); Platelet Count 97 K/mcL (140-440); RBC 2.91 M/mcL (4.50-5.90); Red Cell Distribution Width 14.2 % (11.5-14.5); WBC 4.2 K/mcL (4.5-11.0)
[2019-04-23] MEDS: 0.9 % SODIUM CHLORIDE 10 ML SYRINGE IV SCH (05:44)
[2019-04-23 06:07] LABS: ALT/SGPT 11 U/l (0-40); AST/SGOT 11 U/l (0-37); Albumin 3.1 gm/dL (3.2-5.2); Albumin/Globulin Ratio 1.2 (1.0-2.3); Alkaline Phosphatase 49 U/L (39-117); Bilirubin,Direct < 0.2 mg/dL (0.0-0.3); Bilirubin,Total 0.6 mg/dL (0.0-1.0); Blood Urea Nitrogen 64 mg/dl (8-23); Carbon Dioxide 27 mmol/L (22-30); Chloride 97 mmol/L (96-108); Globulin 2.5 gm/dL (2.2-3.7); Glomerular Filtration Rate 24; Glucose 110 mg/dL (70-105); Lactate Dehydrogenase 134 U/L (94-250); Magnesium 1.5 mg/dL (1.6-2.5); Sodium 139 mmol/L (133-145); Triglycerides 78 mg/dl (<150); Uric Acid 8.9 mg/dL (2.5-8.0)
[2019-04-23] MEDS: PANTOPRAZOLE 40 MG TABLET PO SCH (07:32)
[2019-04-23] MEDS ORDERED: MAGNESIUM SULFATE 2 GM/50 ML BAG IV ONE (07:59)
[2019-04-23] MEDS: DOCUSATE SODIUM 100 MG CAPSULE PO SCH (08:48)
[2019-04-23] MEDS ORDERED: CLOPIDOGREL 75 MG TABLET PO SCH (09:00)
[2019-04-23] MEDS ORDERED: FOLIC ACID 1 MG TABLET PO SCH (09:00)
[2019-04-23] MEDS ORDERED: FOLIC ACID/VITAMIN B COMP W-C 1 TAB TABLET PO SCH (09:00)
[2019-04-23] MEDS ORDERED: ASPIRIN 81 MG TAB.CHEW PO SCH (09:00)
--- NOTE | 2019-04-23 10:38 | Discharge Summary ---
Medical - DS: Prov Patient information: Note initiated : 04/23/19 at 10:35 am Service Date, if different from initiated Date: [] Patient: Rafael Mo 69 y/o M admitted on 04/20/19 for Acute Renal Failure, Hypertension . Chief Complaint: [] Date of admission: 04/20/19 15:59 Discharge date: 04/23/19 Primary care physician: Monique Nadiu Admitting clinician: Piyush Norris Consults: 04/20/19 16:45 Consult to Physician [CONS] Routine Comment: Consulting Provider: Robert Sal Reason For Exam: Physician to Consult Discharging clinician: Piyush Norris Medical - DS: Meds - Discharge Medications Active and Home Medications: Home Medications Apixaban [Eliquis] 5 mg PO BID 04/22/19 [History Confirmed 04/22/19 Last Taken 04/19/19 08:00] Aspirin [Ivelisse Chewable Aspirin] 81 mg PO DAILY 04/22/19 [History Confirmed 04/22/19 Last Taken 04/19/19 08:00] Clopidogrel Bisulfate [Plavix] 75 mg PO DAILY 04/22/19 [History Confirmed 04/22/19 Last Taken 04/19/19 08:00] Lisinopril [Zestril] 20 mg PO DAILY 04/22/19 [History Confirmed 04/22/19 Last Taken 04/19/19 08:00] Metoprolol Succinate [Toprol Xl] 50 mg PO DAILY 04/22/19 [History Confirmed 04/22/19 Last Taken 04/19/19 08:00] Spironolact/Hydrochlorothiazid [Spironolactone-Hctz 25-25 Tab] 1 each PO BID 04/22/19 [History Confirmed 04/22/19 Last Taken 04/19/19 08:00] Medical - DS: Hosp Hospital course: Mr. Mo is a 69 year old M with history of BPH status post prostatectomy, peripheral vascular disease on dual antiplatelet drugs as well as Eliquis presents to the emergency room at [facility] for nausea and vomiting that has been bothering him for the last 2 weeks. Patient notes that he has been having severe nausea and vomiting every time he tries to eat something. He denies any nausea vomiting or retching when he does not eat. Usually food that he has eaten will come out. He denies any blood in the stools no black stools or melena. He notes his nausea vomiting is worse with food and better with n.p.o. status. He has not eaten or has not had much fluid intake for the last 2 weeks. Initially felt his symptoms would get better however since that did not improve he decided to go to the emergency room. He was admitted with similar symptoms last year but he had renal failure secondary to decreased oral intake associated with nausea and vomiting. The patient also complains about abdominal pain right lower quadrant that started 2 weeks ago he is not sure if the pain started first with the nausea vomiting started first. He denies any diarrhea or any blood in the stools he denies any obvious aggravating or relieving factors with relation to his lower abdominal pain. Sharp pain intermittent nonradiating. The patient also notes intermittent chest pains, epigastric burning, lasts for a few seconds not associated with shortness of breath or palpitations. The patient admits to having some dizziness whenever he changes position. Does not recollect when was the last time he passed urine. On presenting to the emergency room at [facility] according to the ER ph ysician the patient was hypotensive but responded to IV fluids., Labs showed WBC count of 6.3 hemoglobin 11.9 platelets 146, sodium 133, potassium 6.4 bicarbonate 15 anion gap 26 chloride 92 BUN 181 creatinine 12.7 glucose 88 Venous blood gas shows pH of 7.19 PCO2 42. Patient had a PSA done I believe this year that was 0.008 Patient denies any recent use of NSAIDs, he is on lisinopril and Aldactone for management of his hypertension. Given that [facility] does not have nephrology coverage the patient was transferred here for further management. Dr. Sal, the consulting nephrol ogist had consulted the patient on the phone with the ED provider and had accepted the patient for transfer. 04/21 Patient seen examined, no acute issues, bp still soft, but MAP > 65 labs show improving creat, K , appreciate nephrology input. Pt making urine, sitting comfortably this AM in chair. 04/22 Patient seen examined, no acute complaints at this time. Overnight events reviewed. Patient was a bit hypo-tensive last night after administration of Ambien. This morning blood pressure is normal. Briefly required vasopressin for 2 hours. Has been off vasopressin for a few hours now. He denies any headache chest pain shortness of breath abdominal pain nausea vomiting or diarrhea. Labs show continued improvement in his renal function, electrolytes 04/23 Patient seen and examined, no acute overnight issues or complaints. Patient is stable for discharge, follow-up with PCP in 1 week, follow-up with nephrology in 1 week. I am advising the patient to hold off diuretics and YOKO inhibitors at this time. No other changes to be done in the patient's chronic home medication list I will start the patient folic acid supplement for his low folic acid levels, start pt on ppi In Summary Patient admitted to the hospital after 2 weeks of nausea vomiting and decreased p.o. intake, CT scan negative for any acute intra-abdominal pathology. Previous work-up done for similar presentation showed that he had gastritis as well as presbyesophagus. The patient was not taking any acid suppressant, I started him on PPIs and patient has been able to tolerate p.o. diet well His BUN was 118 creatinine was 12.7 on presentation, appeared to be prerenal patient was hydrated and responded well to treatment. Had elevated potassium. Patient was evaluated by nephrology, patient is going to be followed up with nephrology after discharge. The patient's creatinine at discharge is 2.6 Patient had decreased platelets hemoglobin as well as WBC count, had low folic acid levels will supplement at discharge. 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 Discharge diagnosis: Acute Kidney injury - Time Spent with Patient Total time spent providing and/or coordinating discharge services: Greater than 30 minutes Medical - DS: Exam - Constitutional Vitals: Vital Signs Temp Pulse Resp BP Pulse Ox 04/23/19 08:00 96 04/23/19 07:12 98.9 F 95 H 20 92/65 98 04/23/19 04:10 92 H 107/73 96 04/23/19 04:00 98.9 F 24 H 107/73 95 04/22/19 23:49 99.6 F H 20 112/74 94 04/22/19 23:21 99.6 F H 20 112/74 94 04/22/19 20:12 98 04/22/19 19:47 98.8 F 18 103/69 99 04/22/19 16:17 98.3 F 16 108/73 100 04/22/19 12:33 98.2 F 16 104/67 96 Intake and Output 04/22/19 04/23/19 04/23/19 21:59 05:59 13:59 Intake Total 240 460 240 Output Total 900 1275 575 Balance -660 -815 -335 Intake: Oral 240 460 240 Output: Urine Catheter Amount 575 Void Amount 900 1275 Other: Meal Dinner Breakfast Percent of Meal Consumed 75% 100% Feeding Ability Independent Urine Appearance Clear Clear Clear Urine Color Bright Yellow Pale Pale # Bowel Movements 0 Weight 190 lb 190 lb Patient Weight 04/24/19 05:59 Weight 190 lb Additional comments: Constitutional; Afebrile, cooperative, alert, not in distress. Respiratory system: Air Entry equal on both sides, No crackles or wheezing, no rhonchi. CVS- Rate rhythm regular, S1,S2 heard, no gallop, no rub. Abdomen- Soft nontender abdomen, no organomegaly, no tenderness, no guarding or rigidity, [employer]- AOOx3, moving all extremities, Medical - DS: Data Labs on day of discharge: Labs from last 24 hours 04/23/19 04/23/19 03:22 03:22 WBC 4.2 L RBC 2.91 L Hgb 9.2 L Hct 27.4 L MCV 93.9 MCH 31.7 MCHC 33.7 RDW 14.2 Plt Count 97 L MPV 9.8 Gran % 69.4 Lymph % (Auto) 13.7 L [place] % (Auto) 13.8 H Eos % (Auto) 2.5 Baso % (Auto) 0.6 Gran # 2.9 Lymph # (Auto) 0.6 L [place] # (Auto) 0.6 Eos # (Auto) 0.1 Baso # (Auto) 0 Sodium 139 Potassium 4.0 Chloride 97 Carbon Dioxide 27 Anion Gap 15.0 BUN 64 H Creatinine 2.6 H GFR Calculation 24 Glucose 110 H Uric Acid 8.9 H Calcium 8.0 L Phosphorus 2.0 L Magnesium 1.5 L Total Bilirubin 0.6 Direct Bilirubin < 0.2 GGT 12 AST 11 ALT 11 Alkaline Phosphatase 49 Lactate Dehydrogenase 134 Total Protein 5.6 L Albumin 3.1 L Globulin 2.5 Albumin/Globulin Ratio 1.2 Triglycerides 78 Medical - DS: A/P - Patient/Caregiver Discharge Instructions Activity: increase activity as tolerated Diet: Cardiac (low K) Additional Instructions: [facility] will contact you after discharge Follow-up with your PCP in 1 to 2-week Follow-up with nephrology in 1 to 2-week Do not take lisinopril, spironolactone hydrochlorothiazide [water pill] until you are evaluated by nephrology in the clinic. Stay well-hydrated Take pantoprazole once a day 30 minutes before food. Go to the emergency room if abdominal pain fever chest pain recurrent nausea vomiting or any other acute concern - Follow up Plan Follow up with: Sunni Priest MD [Physician] - 04/29/19 11:30 am (This appointment is with Dr. Robert Sal) Monique Naidu ARNP [Primary Care Provider] - 04/30/19 10:30 am (Please arrive 15 minutes early) Disposition: Home Health Service Prognosis: Fair Rehab Potential: Fair I certify that the patient requires SNF services: No Overall status at discharge: patient is progressing back to baseline Medical - DS: Qual - VTE Deep Vein Thrombosis/Pulmonary Embolism Present on Admission: No
== END 2019-04-23 12:30 | disposition home health service (06) | DRG 683 ==
LOC: ICU 15:59
PROVIDERS: ADMIT Internal Medicine; ATTEND Internal Medicine